=== PATIENT | female | born 1965 | race Caucasian/White ===

== ENCOUNTER → 2025-05-16 08:23 | Outpatient (REF) | payer OTHER, SELFPAY | LOC: PAVMRI 08:23 | PROVIDERS: ATTENDING PHYSICIAN Family Medicine | DX: G35 Multiple sclerosis (principal) | CPT/HCPCS: 70551; 72141 ==

== ENCOUNTER → 2025-06-14 09:17 | Outpatient (REF) | payer OTHER, SELFPAY | LOC: PAVMRI 09:17 | PROVIDERS: ATTENDING PHYSICIAN Family Medicine | DX: G35 Multiple sclerosis (principal) | CPT/HCPCS: 72146 ==